=== PATIENT | male | born 1975 | race Caucasian/White ===

== ENCOUNTER 2019-12-05 14:09 | Emergency (ER) | payer BC, OTHER ==
--- NOTE | 2019-12-05 14:22 | EDM.PDOC ---
ED HPI GENERAL MEDICAL PROBLEM - General Chief Complaint: Lower Extremity Injury/Pain Stated Complaint: Patient states last night while playing basketball the kids about 8:00 went up and came down twisting his right knee now with pain about a 3 out of 10 to the inside of the right knee and is having trouble standing and walking. Dates he can put pressure on it but hurts a lot mostly to the inside part of his knee has a prior history of ACL tear but does not feel that this is the same Time Seen by Provider: 12/05/19 14:10 Source of Information: Reports: Patient History Limitations: Reports: No Limitations - History of Present Illness Duration: Hour(s): Quality: Reports: Dull, Throbbing Improves with: Reports: Rest, Other (No pain with movement whatsoever) Worsens with: Reports: Movement Associated Symptoms: Reports: No Other Symptoms Right Knee Pain Score (Numeric/FACES): 6 - Related Data Allergies Allergy/AdvReac Type Severity Reaction Status Date / Time No Known Allergies Allergy Verified 12/05/19 14:52 Home Meds: Home Meds . [No Known Home Meds] 08/22/13 [History] Past Medical History - Past Health History Medical/Surgical History: Denies Medical/Surgical History Review of Systems - Review of Systems Review Of Systems: See Below Constitutional: Reports: No Symptoms Musculoskeletal: Reports: Leg Pain, Joint Pain Skin: Reports: No Symptoms Neurological: Reports: No Symptoms Psychiatric: Reports: No Symptoms ED EXAM, GENERAL - Physical Exam Exam: See Below Exam Limited By: No Limitations General Appearance: Alert, WD/WN, No Apparent Distress Extremities: Normal Inspection, No Pedal Edema, Normal Capillary Refill, Other ( Exam to the right knee there is mild swelling noted diffusely no effusion or ballottement he has mild tenderness palpation over the insertion of the VMO he has neurovascular intact with strong dorsalis pedis posterior tibialis normal dorsiflexion and plantar flexion full knee exam was deferred this time secondary to pain and swelling not been able to get a full evaluation). No: Normal Range of Motion, Non-Tender Neurological: Alert, Oriented, CN II-XII Intact, Normal Cognition. No: Normal Gait Psychiatric: Normal Affect, Normal Mood Skin Exam: Warm, Intact, Normal Color, No Rash Course - Vital Signs Text/Narrative:: Patient is okay with holding performing a full knee exam with understanding that the last time he tore his ACL they did not examine his knee for a full week he is okay with being placed in an immobilizer and following up with his primary care provider for an exam and MRI if needed Patient states he is okay taking [id number] NSAIDs and Tylenol for pain along with applying ice Knee immobilizer was applied by myself recheck neurovascular intact after Last Recorded V/S: Last Vital Signs Temp 37.2 C 12/05/19 14:15 Pulse 76 12/05/19 14:15 Resp 16 12/05/19 14:15 BP 138/91 H 12/05/19 14:15 Pulse Ox 96 12/05/19 14:15 Departure - Departure Time of Disposition: 14:30 Disposition: Home, Self-Care 01 Condition: Good Clinical Impression: Acute pain of right knee Clinical Impression: (Ruled Out): Acute meniscal injury of right knee - Discharge Information *PRESCRIPTION DRUG MONITORING PROGRAM REVIEWED*: No *COPY OF PRESCRIPTION DRUG MONITORING REPORT IN PATIENT GRANT: No Instructions: Acute Knee Pain, Adult, [id number] Referrals: PCP,None [Primary Care Provider] - Forms: ED Department Discharge Additional Instructions: Apply ice to the area as much as possible over the next 2 to 3 days usually for an hour on an hour off wear the knee immobilizer as much as possible when you are up and moving you may wear for a solid 24 hours the first day Follow up with your primary care provider in the next 24 to 48 hours Return to the emergency room if anything changes or gets worse such as loss of sensation numbness or tingling a cold feeling in your leg knee or foot Sepsis Event Note - Focused Exam Vital Signs: Vital Signs Temp Pulse Resp BP Pulse Ox 12/05/19 14:15 37.2 C 76 16 138/91 H 96 Date Exam was Performed: 12/05/19 Time Exam was Performed: 22:48 - Problem List & Annotations (1) Acute pain of right knee SNOMED Code(s): 66111674, 985673980 Code(s): M25.561 - PAIN IN RIGHT KNEE Status: Acute
== END 2019-12-05 14:35 | disposition home or self-care (01) ==
LOC: VM.ED 14:09
DX: M25.561 Pain in right knee (principal); X50.1XXA Overexertion from prolonged static or awkward postures, initial encounter; Y93.67 Activity, basketball
CPT/HCPCS: 99283